=== PATIENT | male | born 2000 | race Caucasian/White ===

== ENCOUNTER 2022-09-06 06:04 | Emergency (ER) | payer OTHER ==
[~2022-09-06] VITALS: Ht 180.3 cm; Wt 78.0 kg
[2022-09-06 06:07] VITALS: BP_SYST 160
--- NOTE | 2022-09-06 06:10 | NUR ---
PT HERE C/O LT EAR PAIN X2 WKS. PT DENIES FEVER, DENIES COUGH. PT AAOX4, NO SOB NOTED AND NOT IN ANY DISTRESS. PENDING MD MORRISON
--- NOTE | 2022-09-06 06:19 | NUR ---
Pt report received. Pt c/o constant sharp left inner ear pain x 2 weeks, but worse this am. Pt also states that he has been having dark-green and yellow discharge from nose. Denies cough or fever.
--- NOTE | 2022-09-06 06:30 | NUR ---
Dr. Witt assessing pt.
[2022-09-06] MEDS ORDERED: ZIT250 PO (06:36)
[2022-09-06] MEDS ORDERED: TRAM50TA PO (06:36)
[2022-09-06 06:46] VITALS: BP_SYST 132
--- NOTE | 2022-09-06 06:46 | NUR ---
Patient given written and verbal discharge instructions and verbalizes understanding. ER MD discussed with patient the results and treatment provided. Patient in stable condition. ID arm band removed. Rx of Tramadol and Zithromax given. Patient educated on pain management and to follow up with PMD. Pain Scale 3/10. Opportunity for questions provided and answered. Medication side effect fact sheet provided.
== END 2022-09-06 06:46 | disposition home or self-care (01) ==
LOC: SED 06:04
DX: H66.92 Otitis media, unspecified, left ear (principal); H92.02 Otalgia, left ear; R05.9 Cough, unspecified; R09.81 Nasal congestion; Z88.1 Allergy status to other antibiotic agents; Z79.899 Other long term (current) drug therapy
CPT/HCPCS: 99283